=== PATIENT | female | born 1970 | race Hispanic/Latino ===

== ENCOUNTER 2018-06-08 15:13 | Outpatient (CLI) | payer OTHER ==
--- NOTE | 2018-06-15 14:48 | MMO ---
BILATERAL SCREENING MAMMOGRAM: Date: 06/08/18 COMPARISON: 07/10/17, 02/29/16. HISTORY: Annual screening exam. This patient's mammogram was interpreted with the assistance of computer-aided detection. FINDINGS: The breasts are heterogeneously dense. There is no dominant mass, suspicious calcification, or other sign of malignancy. IMPRESSION: BIRADS 1: Negative POS: [place]
== END 2018-06-08 15:14 | disposition home or self-care (01) ==
LOC: SCSMAMMO 15:13
PROVIDERS: ATTEND Family Medicine
DX: Z12.31 Encounter for screening mammogram for malignant neoplasm of breast (principal)
CPT/HCPCS: 77067